=== PATIENT | male | born 1960 | race Caucasian/White ===

== ENCOUNTER → 2019-01-27 | Outpatient (CLI) | payer OTHER ==
[~2019-01-27] MED LIST: AZIT-1 PO; CEPH500C24 PO; CYCL10TA29 PO; IBUP800T37 PO; MELO-207 PO; MULT-865 PO; PRED20TA6 PO; Return to work; Work Note
[2019-01-27 10:25] LABS: PLATELET COUNT, AUTOMATED 177 K/uL (150-450)
[2019-01-27 10:43] LABS: LDL CHOLESTEROL 73 mg/dl
== END ==
LOC: LAB 09:47
PROVIDERS: ATTEND Obstetrics & Gynecology
DX: Z13.9 Encounter for screening, unspecified (principal); M25.50 Pain in unspecified joint; R41.841 Cognitive communication deficit; R53.83 Other fatigue
CPT/HCPCS: 36415; 82040; 82247; 82306; 82310; 82374; 82435; 82465; 82565; 82607; 82670; 82947; 83718; 84075; 84132; 84153; 84155; 84295; 84403; 84436; 84443; 84450; 84460; 84478; 84481; 84520; 85025; 86376

== ENCOUNTER → 2019-03-31 | Outpatient (CLI) | payer OTHER ==
[2019-03-31 15:47] LABS: PLATELET COUNT, AUTOMATED 180 K/uL (150-450)
== END ==
LOC: LAB 15:15
PROVIDERS: ATTEND Obstetrics & Gynecology
DX: E29.1 Testicular hypofunction (principal); M62.81 Muscle weakness (generalized); R53.81 Other malaise; R53.83 Other fatigue; R68.82 Decreased libido
CPT/HCPCS: 36415; 82670; 84403; 84439; 84443; 84481; 85007; 85027